=== PATIENT | female | born 1950 | race Caucasian/White ===

== ENCOUNTER 2017-08-12 14:19 | Outpatient (CLI) | payer MEDICARE, OTHER ==
--- NOTE | 2017-08-12 15:09 | MMO ---
BILATERAL SCREENING MAMMOGRAM: DATE: 08/12/17 HISTORY: 67-year-old female for screening mammography. COMPARISON: 10/04/14. FINDINGS: Bilateral MLO and CC views of the breasts show predominantly fatty replaced breast parenchyma. There is no evidence of suspicious mass, suspicious cluster of microcalcifications, or area of architectura l distortion. Interpretation of this mammogram was performed with the assistance of computer-aided detection. IMPRESSION: BIRADS 1: Negative Annual screening mammography is recommended. POS: [facility]
== END 2017-08-12 14:20 | disposition home or self-care (01) ==
LOC: SCSMAMMO 14:19
PROVIDERS: ATTEND Family Medicine
DX: Z12.31 Encounter for screening mammogram for malignant neoplasm of breast (principal)
CPT/HCPCS: 77067

== ENCOUNTER 2017-12-01 15:15 | Outpatient (CLI) | payer MEDICARE, OTHER | END 2017-12-01 15:16 | disposition home or self-care (01) | LOC: BICMAMMO 15:15 | PROVIDERS: ATTEND Family Medicine | DX: Z13.820 Encounter for screening for osteoporosis (principal); Z78.0 Asymptomatic menopausal state; M81.0 Age-related osteoporosis without current pathological fracture; M85.859 Other specified disorders of bone density and structure, unspecified thigh | CPT/HCPCS: 77080 ==

== ENCOUNTER 2018-08-04 09:34 | Outpatient (CLI) | payer MEDICARE, OTHER ==
[~2018-08-04 09:34] MED LIST: Iopamidol 370 76% 100 ML VIAL ONE
--- NOTE | 2018-08-04 11:06 | CT ---
CT ABDOMEN AND PELVIS WITH AND WITHOUT IV CONTRAST: HISTORY: Left abdominal pain. Palpable lump. COMPARISON: 08/27/2016 FINDINGS: Small calcified and noncalcified granulomata at the lung bases are stable. Postoperative changes of the stomach are again demonstrated. A marker placed over the left abdomen is noted. No underlying m ass. It is at the left mid to lower rib costochondral junction. Calcifications of the spleen, including a peripherally calcified cystic lesion, are stable. Small calcifications are present within nondilated calices of each kidney. On the right, they measur e up to 0.5 cm in greatest diameter. On the left, less than 0.2 cm. Small renal cysts are apparent. Calcification within the arterial structures. The urinary bladder is decompressed. Scattered dive rticula of the colon without adjacent inflammation. Degenerative changes lumbar spine. IMPRESSION: 1. Diverticulosis. No evidence of diverticulitis. No cause for left abdominal pain is apparent. 2. Small bilateral renal calculi. 3. Atherosclerosis. 4. Chronic type findings are stable. POS: CET
== END 2018-08-04 09:35 | disposition home or self-care (01) ==
LOC: SCSCT 09:34
PROVIDERS: ATTEND Family Medicine
DX: R10.12 Left upper quadrant pain (principal); R10.32 Left lower quadrant pain; K57.30 Diverticulosis of large intestine without perforation or abscess without bleeding; N20.0 Calculus of kidney; I70.90 Unspecified atherosclerosis; M47.816 Spondylosis without myelopathy or radiculopathy, lumbar region; N28.89 Other specified disorders of kidney and ureter; D73.89 Other diseases of spleen; D73.4 Cyst of spleen; N28.1 Cyst of kidney, acquired
CPT/HCPCS: 74178; 82565; Q9967

== ENCOUNTER 2018-08-31 16:13 | Outpatient (CLI) | payer MEDICARE, OTHER ==
--- NOTE | 2018-09-01 07:13 | MRI ---
MRI LEFT KNEE WITHOUT CONTRAST: Date: 01/01/19 INDICATION: 68-year-old female with medial left knee pain since April 2018 with history of prior meniscal repai r. COMPARISON: MRI of the left knee dated 09/15/11. FINDINGS: There is postprocedural change consistent with a partial meniscectomy of the body and posterior horn of the medial meniscus. There is a recurrent tear involving the posterior horn of the medial meniscus . This is a predominantly horizontally oriented tear involving the posterior junction and posterior h orn. The lateral meniscus remains intact. The diffuse chondral thinning involving the medial femoroti bial joint compartment and moderate large osteophytes appears relatively stable. Articular cartilage of the lateral femorotibial and patellofemoral compartment appears relatively well maintained. The AC L, PCL, MCL, and LCLC are intact. No joint effusion or popliteal cyst is evident. IMPRESSION: 1. Interval partial meniscectomy of the medial meniscal body and posterior horn with developmental o f a recurrent horizontally oriented tear involving the posterior junction and posterior horn of the m edial meniscus. Lateral meniscus is intact. 2. The prominent near full thickness articular cartilage thinning seen diffusely throughout the medi al femorotibial joint compartment appears relatively stable with mild to moderate marginal osteophyte s. 3. Mild diffuse chondrosis of the patellofemoral and lateral femorotibial joint compartment is relat ively stable. POS: BH
== END 2018-08-31 16:14 | disposition home or self-care (01) ==
LOC: SCSMRI 16:13
PROVIDERS: ATTEND Orthopaedic Surgery
DX: M25.562 Pain in left knee (principal); M25.762 Osteophyte, left knee; M94.8X6 Other specified disorders of cartilage, lower leg; S83.242A Other tear of medial meniscus, current injury, left knee, initial encounter; Z98.890 Other specified postprocedural states

== ENCOUNTER → 2020-05-07 | Day surgery (SDC) | payer MEDICARE, OTHER ==
[2020-05-04 13:25] VITALS: BMI 43.4
[~2020-05-07] MED LIST changes: +Hydrocortisone 1% Cream 30 GM TUBE ONE; -Iopamidol 370 76% 100 ML VIAL ONE; +PROPOFOL 20 ML ONE
== END ==
LOC: CCL 09:32
PROVIDERS: ATTEND Internal Medicine Cardiovascular Disease
PROC: 5A2204Z Restoration of Cardiac Rhythm, Single (ICD-10-PCS; principal; 2020-05-07)
DX: I48.19 Other persistent atrial fibrillation (principal); I49.5 Sick sinus syndrome; G47.33 Obstructive sleep apnea (adult) (pediatric); E03.9 Hypothyroidism, unspecified; Z79.01 Long term (current) use of anticoagulants; Z79.899 Other long term (current) drug therapy; Z88.8 Allergy status to other drugs, medicaments and biological substances; Z91.011 Allergy to milk products; Z91.018 Allergy to other foods
CPT/HCPCS: 92960; 93005; 93010; J2704

== ENCOUNTER 2020-09-20 10:26 | Day surgery (SDC) | payer MEDICARE, OTHER ==
[2020-09-19 09:47] VITALS: BMI 43.4
[2020-09-20] MEDS ORDERED: B & O ONE (13:43)
[2020-09-20] MEDS ORDERED: Iothalamate Meglumine 60% 50 ML VIAL FS ONE (13:43)
[2020-09-20] MEDS ORDERED: Fentanyl 100 MCG/2 ML VIAL ONE (13:45)
[2020-09-20] MEDS ORDERED: Midazolam HCl 2 mg/2 ml Vial ONE (13:45)
[2020-09-20] MEDS ORDERED: Levofloxacin 500 mg/D5W 100 ml Premix Bag ONE (14:18)
[2020-09-20] MEDS ORDERED: Morphine 4 MG/ML VIAL ONE ×2 (14:22→15:52)
[2020-09-20] MEDS ORDERED: Ondansetron PF 4 MG/2 ML Vial ONE (14:29)
[2020-09-20] MEDS ORDERED: Dexamethasone 20 MG/5 ML VIAL ONE (14:29)
[2020-09-20] MEDS ORDERED: Esmolol 100 MG/10 ML VIAL ONE (14:29)
[2020-09-20] MEDS ORDERED: Glycopyrrolate 0.2 MG/ML 5 ML SYRINGE ONE (14:29)
[2020-09-20] MEDS ORDERED: Rocuronium Bromide 10 MG/ML (10ML VIAL) ONE (14:29)
[2020-09-20] MEDS ORDERED: PROPOFOL 200 MG/20 ML VIAL ONE (14:29)
[2020-09-20] MEDS ORDERED: Lidocaine 1% PF 5 ML VIAL ONE (14:29)
[2020-10-03 18:39] LABS: CA Oxalate Monohydrate 100 % (.); Color Brown (.); Stone Weight 138 mg (.)
== END 2020-09-20 18:10 | disposition home or self-care (01) ==
LOC: SDC 10:26
PROVIDERS: ATTEND Urology
PROC: 0TC38ZZ Extirpation of Matter from Right Kidney Pelvis, Via Natural or Artificial Opening Endoscopic (ICD-10-PCS; principal; 2020-09-20)
PROC: 0TC68ZZ Extirpation of Matter from Right Ureter, Via Natural or Artificial Opening Endoscopic (ICD-10-PCS; 2020-09-20)
PROC: 0T768DZ Dilation of Right Ureter with Intraluminal Device, Via Natural or Artificial Opening Endoscopic (ICD-10-PCS; 2020-09-20)
DX: N13.2 Hydronephrosis with renal and ureteral calculous obstruction (principal); E03.9 Hypothyroidism, unspecified; G47.33 Obstructive sleep apnea (adult) (pediatric); I10 Essential (primary) hypertension; K21.9 Gastro-esophageal reflux disease without esophagitis; I48.20 Chronic atrial fibrillation, unspecified; Z79.01 Long term (current) use of anticoagulants; Z79.899 Other long term (current) drug therapy; Z98.84 Bariatric surgery status
CPT/HCPCS: 52352; 52356; 74420; Q9961; 82365; 88300; C2617; J1100; J1956; J2250; J2270; J2405; J2704; J3010

== ENCOUNTER 2020-11-29 19:30 | Outpatient (CLI) | payer MEDICARE, OTHER | END 2020-11-29 19:31 | disposition home or self-care (01) | LOC: SLEEPLAB 19:30 | PROVIDERS: ATTEND Family Medicine | DX: G47.33 Obstructive sleep apnea (adult) (pediatric) (principal); R53.83 Other fatigue; K21.9 Gastro-esophageal reflux disease without esophagitis; R06.83 Snoring; F32.9 Major depressive disorder, single episode, unspecified; I10 Essential (primary) hypertension; I48.91 Unspecified atrial fibrillation; E03.9 Hypothyroidism, unspecified; E66.9 Obesity, unspecified; Z68.41 Body mass index [BMI] 40.0-44.9, adult | CPT/HCPCS: 95810; 95811 ==

== ENCOUNTER 2020-12-24 08:19 | Outpatient (CLI) | payer MEDICARE, OTHER ==
[2020-12-24 09:44] LABS: Hemoglobin 12.9 g/dL (12.0-15.5); Mean Corpuscular HGB CONC 29.9 g/dL (32.0-36.0); Mean Corpuscular Hemoglobin 28.2 pg (27.0-33.0); Mean Corpuscular Volume 94.5 fl (81.6-98.3); Mean Platelet Volume 12.2 fl (7.4-10.4); Platelet Count 220 10x3/uL (150-450); Red Blood Cell (RBC) Count 4.57 10x6/uL (3.90-5.03); White Blood Cell (WBC) Count 7.4 10x3/uL (3.5-10.5)
[2020-12-24 09:59] LABS: Prothrombin Time 11.3 sec (9.5-12.1)
[2020-12-24 10:35] LABS: Anion Gap 13 mmol/L (10-20); BUN (Urea Nitrogen) 16 mg/dL (9.8-20.1); Calc. Creatinine Clearance 0 mL/min (70-130); Carbon Dioxide 26 mmol/L (23-31); Chloride 107 mmol/L (98-107); Potassium 4.4 mmol/L (3.5-5.1); Sodium 142 mmol/L (136-145)
[2020-12-24 10:36] LABS: Calcium 9.5 mg/dL (7.8-10.44); Glucose 89 mg/dL (83-110)
[2020-12-24 22:32] LABS: SARS-CoV-2 PCR by NAA Not Detected (NotDetected)
== END 2020-12-24 08:20 | disposition home or self-care (01) ==
LOC: LABBT 08:19
PROVIDERS: ATTEND Internal Medicine Cardiovascular Disease
DX: Z01.812 Encounter for preprocedural laboratory examination (principal); I48.19 Other persistent atrial fibrillation; Z20.822 Contact with and (suspected) exposure to COVID-19
CPT/HCPCS: 80048; 84443; 85027; 85610; U0003; U0005

== ENCOUNTER 2020-12-27 05:47 | Day surgery (SDC) | payer MEDICARE, OTHER ==
[2020-12-25 12:48] VITALS: BMI 41.7
[2020-12-27] MEDS ORDERED: PROPOFOL 20 ML ONE (06:42)
== END 2020-12-27 08:11 | disposition home or self-care (01) ==
LOC: CCL 05:47
PROVIDERS: ATTEND Internal Medicine Cardiovascular Disease
PROC: 5A2204Z Restoration of Cardiac Rhythm, Single (ICD-10-PCS; principal; 2020-12-27)
DX: I48.19 Other persistent atrial fibrillation (principal); I49.5 Sick sinus syndrome; G47.33 Obstructive sleep apnea (adult) (pediatric); E03.9 Hypothyroidism, unspecified; Z79.01 Long term (current) use of anticoagulants; Z79.899 Other long term (current) drug therapy; Z98.84 Bariatric surgery status
CPT/HCPCS: J2704